=== PATIENT | female | born 1955 | race Two or more races ===

== ENCOUNTER → 2016-08-23 | Day surgery (SDC) | payer MEDICARE, MEDICAID ==
--- NOTE | 2016-08-19 16:36 | Pre-Procedure Note/Attestation ---
Pre-Procedure Note/Attestation Complete Prior to Procedure Planned Procedure: bilateral Procedure Narrative: 1- Ptosis correction, upper lids 2- Entropion correction upper lids 3- Blepharoplasty, upper lids Indications for Procedure Pre-Operative Diagnosis: 1- Ptosis ,upper lids 2- Entropion, upper lids 3- Blepharochalasis and dermatochalasis upper lids Attestation I attest that I discussed the nature of the procedure; its benefits; risks and complications; and alternatives (and the risks and benefits of such alternatives ), prior to the procedure, with the patient (or the patient's legal outside energy sales representatives). I attest that, if there was a reasonable possibility of needing a blood transfusion, the patient (or the patient's legal outside energy sales representatives) was given the [facility] standardized written summary, pursuant to the Alexis Maryann Blood Safety Act ([place] Health and Safety Code # 1645, as amended). I attest that I re-evaluated the patient just prior to the surgery and that there has been no change in the patient's H&P, except as documented below: KIMBERLY DICKSON Aug 19, 2016 16:36
[~2016-08-23] VITALS: Ht 162.6 cm; Wt 66.7 kg
[2016-08-23] VITALS (9 sets, daily range): BP systolic 121–148; BP diastolic 74–86
[~2016-08-23] MED LIST: Akten 3.5% 1ml Btl BOTH EYES ONE; Bupivacaine 0.75% 30ml vial INJ ONE; DiphenhydrAMINE 50mg/ml Inj IVP PRN; LR 1000ml 1,000 ML IVLG SCH; LR 1000ml ONE; Labetalol 5mg/ml 20ml vial IV PRN; Lidocaine 1% MPF 10mg/ml 5ml ONE; Lidocaine 2% 20mg/ml/Epi 0.005mg/ml 20ml vial ONE; Maxitrol Opth Oint 3.5gm BOTH EYES ONE; Midazolam 2mg/2ml Inj ONE; NS Irrig 1000ml ONE; Povidone-Iodine 5% opth solution ONE; Propofol 10mg/ml 20ml IV ONE; Sterile Water Irrig 1000ml IRRIG ONE; TRAMADOL HCL50 MG ORAL; fentaNYL 100 mcg/2 mL IV ONE
--- NOTE | 2016-08-23 09:25 | Anethesia Preoperative Eval ---
Anesthesia Pre-op PMH/ROS General Date of Evaluation: Aug 23, 2016 Anesthesiologist: Dennis ASA Score: ASA 2 Mallampati Score Class I : Soft palate, uvula, fauces, pillars visible Class II: Soft palate, uvula, fauces visible Class III: Soft palate, base of uvula visible Class IV: Only hard plate visible Mallampati Classification: Class II Surgeon: Sofiya Diagnosis: Bilateral ptosis Surgical Procedure: Bilateral blepharoplasty Anesthesia History: none Family History: no anesthesia problems Allergies: Coded Allergies: No Known Allergies (Unverified , 08/19/16) Medications: see eMAR Past Medical History Cardiovascular: Reports: HTN, Denies: CAD, SC, arrhythmia, other, valve dz Pulmonary: Denies: COPD, JANIE, asthma, other Gastrointestinal/Genitourinary: Denies: CRI, ESRD, GERD, other Neurologic/Psychiatric: Denies: CVA, TIA, dementia, depression/anxiety, other Endocrine: Denies: DM, hypothyroidism, other, steroids HEENT: Denies: [place] (L), [place] (R), cataract (L), cataract (R), glaucoma, other Hematology/Immune: Denies: DVT, anemia, bleeding disorder, other Musculoskeletal/Integumentary: Reports: OA, Denies: DDD, DJD, RA, edema, other PSxH Narrative: lap appy Anesthesia Pre-op Phys. Exam Physician Exam Last Vital Signs Date Time Temp Pulse Resp B/P Pulse Ox O2 Delivery O2 Flow Rate FiO2 08/23/16 09:04 98.2 68 20 147/79 98 Room Air Constitutional: NAD Cardiovascular: RRR Respiratory: CTA Airway Exam Mallampati Score: Class II Anesthesia Pre-op A/P Labs see chart Studies Pre-op Studies: EKG - sr Risk Assessment & Plan Assessment: ASA II Plan: MAC Status Change Before Surgery: No Pre-Antibiotics Drug: N/A SHERYL TOLLIVER M.D. Aug 23, 2016 09:25
--- NOTE | 2016-08-23 09:28 | Immediate Post-Op Evaluation ---
Immediate Post-Op Evalulation Immediate Post-Op Evalulation Procedure: Bilateral blepharoplasty Date of Evaluation: Aug 23, 2016 Time of Evaluation: 12:20 IV Fluids: 800 Blood Products: 0 Estimated Blood Loss: 0 Urinary Output: 0 Blood Pressure Systolic: 135 Blood Pressure Diastolic: 84 Pulse Rate: 86 Respiratory Rate: 17 O2 Sat by Pulse Oximetry: 96 Temperature (Fahrenheit): 98.7 Pain Score (1-10): 0 Nausea: No Vomiting: No Complications 0 Patient Status: awake, reacts, patent, none Hydration Status: adequate Drug: SHERYL TURPIN M.D. Aug 23, 2016 09:28
--- NOTE | 2016-08-23 09:29 | 48 Hour Post Anesthesia Eval ---
Post Anesthesia Evaluation Procedure: Bilateral blepharoplasty Date of Evaluation: Aug 23, 2016 Time of Evaluation: 14:00 Blood Pressure Systolic: 146 0: 86 Pulse Rate: 72 Respiratory Rate: 18 O2 Sat by Pulse Oximetry: 97 Airway: patent Nausea: No Vomiting: No Pain Intensity: 0 Hydration Status: adequate Cardiopulmonary Status: at [place] Mental Status/LOC: patient returned to baseline Post-Anesthesia Complications: 0 Follow-up care needed: ready to discharge SHERYL TOLLIVER M.D. Aug 23, 2016 09:29
--- NOTE | 2016-08-23 12:21 | Brief Operative Note ---
Immediate Post Operative Note Operative Note Chief Complaint: Droopy eyelids, difficulty driving and reading Pre-op Diagnosis: 1- Ptosis ,upper lids 2- Entropion, upper lids 3- Blepharochalasis and dermatochalasis upper lids Procedure: 1- Ptosis correction upper lids 2- Entropion correction upper lids 3- Blepharoplasty upper lids 4- Brow lifting bilaterally Post-op Diagnosis: same as pre-op Surgeon: Kimberly Arriaza MD. Industrial Hygiene Technician: None Additional Surgeons: None Anesthesiologist: Dr. Collins Anesthesia: local, MAC Specimen: none Complications: none Condition: stable Estimated Blood Loss: minimal Drains: none Implant(s) used?: KIMBERLY Cali Aug 23, 2016 12:21
--- NOTE | 2016-08-24 01:18 | Operative Note - Dictated ---
DATE OF OPERATION: 08/23/2016 FACILITY: [facility]. SURGEON: Carrington Arriaza M.D. ESCROW OFFICER: None. ANESTHESIOLOGIST: Dr. Collins. ANESTHESIA: Monitored anesthesia care (MAC). PREOPERATIVE DIAGNOSES: 1. Ptosis, upper lids. 2. Entropion, upper lids. 3. Dermatochalasis, upper lids. 4. chalasis bilateral. POSTOPERATIVE DIAGNOSES: 1. Ptosis, upper lids. 2. Entropion, upper lids. 3. Dermatochalasis, upper lids. 4. chalasis bilateral. SURGERY PERFORMED: 1. Ptosis correction, upper lids. 2. Entropion correction, upper lids. 3. Blepharoplasty, upper lids. 4. Eyebrow lifting bilaterally, CPT code 61827. INDICATIONS FOR THE SURGERY: The patient is a 60-year-old lady with a history of asthma and osteoarthritis. She is taking tramadol and inhaler for asthma. She is complaining of blurry vision, droopy eyelids, and difficulty driving because of this problem. 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 This is a progressive dermatochalasis skin disease with resulting change of corneal curvature, which induces astigmatism with covering of the visual axis, which . The severity of the patient's dermatochalasis, ptosis, entropion, and is clearly demonstrated on enclosed photos and the patient's visual ruiz. The only solution for this patient is correction of all those disfigurement and anatomy changes with surgery. INFORMED CONSENT: The nature of the surgery, risks, benefits, alternatives, and potential complications were explained to the patient in detail in her language and in [place]. She voiced understanding. The potential complications including but not limited to bleeding, infection, corneal exposure, overcorrection, undercorrection, ecchymosis, swelling of the face, hematoma, dry eye syndrome, loss of eyelashes, loss of eyebrows, inequality of both eyes, change in vision, loss of vision, and loss of the eye were all explained in detail to the patient who voiced understanding and accepted all the complications. Then, she signed the consent form, which is in the chart. Description Of Surgery And Findings: Following that, the patient was taken to the operation room in a stable condition. Lidocaine gel, Akten, 3.5% was applied to the conjunctiva of both eyes. Following that, the upper lids were marked with a marking pen 10 mm above the root of the eyelashes and 10 mm below the lower part of the eyebrows. About 20 mm of the skin was left to facilitate eye closure. IV sedation was given by the anesthesiologist, Dr. Collins. After adequate anesthesia sedation had been achieved, the upper eyelid, eyeball, and lower eyelids were all anesthetized with 2% lidocaine with epinephrine 1:100,000 mixture with Marcaine 0.75%, 50-50 mixture. Following that, using a Bovie knife, the skin and subdermal tissue were dissected from the orbicularis oculi muscle and excised. A cut was made in the orbicularis oculi, but the tissues were bleeding too much. I realized that the patient had a previous surgery many years ago that she never mentioned, therefore, bleeding was too much. Anyway, excess fat particularly following that, the fat compartment was sculptured conservatively. Following that, the levator palpebrae superioris muscle was dissected to the aponeurosis of the muscle and the aponeurosis of the muscle was tacked about 6 mm and marked with three stitches on each side. Then, the palpebral fissure was compared in both sides and they were equal. Following that, with 6-0 Vicryl the marked area of the levator palpebrae superioris muscle was stitched with 6-0 Vicryl and the suture was trimmed and hemostasis was performed. Following that, a wedge groove was made 3 mm above the root of the upper eyelashes. Following that, the tarsal plate was grooved. Then, the tissue inside the groove was removed with Vannas scissor. Following that, the lips of the groove was stitched with 6-0 Vicryl and the eyelid border rotated upward and eyelashes were turned from downward to upward. The orbicularis oculi muscle was then freed from the bone and the muscle was undermined to the inferior border of the frontal bone. Then, the muscle and the skin were undermined to the root of the forehead hair. Then, the eyebrow was released from both sides and moved 10 mm above the superior rim of the orbit. Using 4-0 nylon stitch, the muscle and the skin was stitched to the periosteum of the frontal bone. Following that, hemostasis was performed and . At the end of the surgery, the skin was stitched and the wound was closed with 6-0 Vicryl in the fashion of continuous running stitch. A pressure Band-Aid was placed in the eyebrow to put pressure and a kind of prevention of creating hematoma. The patient tolerated the surgery without complications. At the end of the surgery, TobraDex eye ointment was applied to the wound and inside the eyes. Following that, the patient was transferred to the recovery room. In the recovery room, cold compress was applied to the area. The wound was checked for bleeding. There was no bleeding. Postoperative orders and directions were given to the patient. The patient will be discharged home upon stabilization. The patient will be followed in my office tomorrow morning. Carrington Arriaza M.D. DR: PHILIP JOB#: [id number] CC:
[2016-08-24 07:36] VITALS: BP 146/86
--- NOTE | 2016-08-24 15:58 | Discharge Summary ---
DATE OF ADMISSION: 08/23/2016 REASON FOR HOSPITALIZATION: 1. Ptosis, upper lids. 2. Entropion, upper lids. 3. Blepharochalasis, upper lids. 4. Dermatochalasis of upper lids. 5. Proptosis bilaterally. SURGERY PERFORMED: 1. Ptosis correction, upper lids. 2. Entropion correction, upper lids. 3. Blepharoplasty, upper lids. 4. . HOSPITAL COURSE AND TREATMENT: The patient tolerated the surgery without complications. The patient was stable at discharge. The patient has to rest at home. No bending. No lifting. No watching TV tonight. DISCHARGE MEDICATIONS: 1. TobraDex eyedrops one drop q.i.d., both eyes. 2. Maxitrol eye ointment applied to the wound. 3. Keflex 500 mg capsule one p.o. q.8 hours. 4. Vicodin 5 mg/300 mg, one tablet q.6 hours as needed for pain. POSTOPERATIVELY FOLLOWUP: The patient will be followed in my office tomorrow morning. Carrington Arriaza M.D. DR: PHILIP JOB#: [id number] CC:
== END | disposition home or self-care (01) ==
LOC: SUR 08:21
DX: H02.403 Unspecified ptosis of bilateral eyelids (principal); H02.034 Senile entropion of left upper eyelid; H02.031 Senile entropion of right upper eyelid; H02.34 Blepharochalasis left upper eyelid; H02.31 Blepharochalasis right upper eyelid; H02.834 Dermatochalasis of left upper eyelid; H02.831 Dermatochalasis of right upper eyelid; M19.90 Unspecified osteoarthritis, unspecified site; I10 Essential (primary) hypertension; J45.909 Unspecified asthma, uncomplicated; Z90.49 Acquired absence of other specified parts of digestive tract
CPT/HCPCS: 15823; 67900; 67924; J2250; J2704; J3010; J3490; J7120; 94003; 94150